=== PATIENT | male | born 1960 | race Caucasian/White ===

== ENCOUNTER 2016-09-19 11:14 | Emergency (ER) | payer OTHER, BC ==
[~2016-09-19] VITALS: Ht 177.8 cm; Wt 76.4 kg
[~2016-09-19 11:14] MED LIST: LEVO25TA2 PO; LISI5TAB14 PO; MULT-954 PO; NAPR500T3 PO
--- OUTSIDE RECORDS SUMMARY | 2016-09-19 11:18 | XMS REPORT | Continuity of Care Document ---
Author Author [facility] Address Unknown Phone Unavailable Allergies Active Description Code Type Severity Reaction Onset Reported/Identified Relationship to Patient Clinical Status Yes Penicillins [id number] Drug Allergy Mild Hives 11/08/2013 Medications Problems Date Dx Coded Attending Type Code Diagnosis Diagnosed By 11/08/2013 IVANNA MANJARREZ, HORACE Linares Ot 719.43 JOINT PAIN-FOREARM 11/08/2013 IVANNA MANJARREZ, HORACE Linares Ot 726.90 ENTHESOPATHY, SITE NOS 01/31/2015 Ot 241.0 02/12/2015 JULIO CESAR MCINTOSH Ot 715.31 LOC OSTEOARTH NOS-SHLDER 02/12/2015 JULIO CESAR MCINTOSH Ot V57.1 PHYSICAL THERAPY NEC 02/28/2015 JULIO CESAR MCINTOSH Ot 715.31 02/28/2015 JULIO CESAR MCINTOSH Ot V57.1 04/10/2016 Ot 241.0 NONTOX UNINODULAR GOITER 04/15/2016 CARLIE MANJARREZ, JOHNNIE Rowe Ot R13.10 DYSPHAGIA, UNSPECIFIED 04/23/2016 CARLIE MANJARREZ, JOHNNIE Rowe Ot R13.10 DYSPHAGIA, UNSPECIFIED 04/24/2016 Ot 241.0 NONTOX UNINODULAR GOITER 04/24/2016 CARLIE MANJARREZ, JOHNNIE Rowe Ot R13.10 DYSPHAGIA, UNSPECIFIED 05/14/2016 JOHNNIE SEXTON MD Ot R13.10 DYSPHAGIA, UNSPECIFIED Procedures Results Encounters ACCT No. Visit Date/Time Discharge Status Pt. Type Provider Facility Loc./Unit Complaint [id number] 05/01/2016 16:15:00 2015 10:33:00 DIS Outpatient CARLIE MANJARREZ, JOHNNIE [facility] ST NEW-DYSPHAGIA [id number] 02/12/2015 10:00:00 2014 11:30:00 DIS Outpatient JULIO CESAR MCINTOSH [facility] PT NEW/L SHOULDER OSTEOARTHRITIS [id number] 11/08/2013 15:57:00 2013 16:43:00 DIS Emergency IVANNA MANJARREZ, HORACE L [facility] ED [id number] 04/11/2016 09:25:00 ACT Outpatient CARLIE MANJARREZ, [facility] RAD DYSPHAGIA [id number] 01/31/2015 09:51:00 Document Registration
--- OUTSIDE RECORDS SUMMARY | 2016-09-19 11:21 | XMS REPORT | Continuity of Care Document ---
Author Author [facility] Address Unknown Phone Unavailable Allergies Active Description Code Type Severity Reaction Onset Reported/Identified Relationship to Patient Clinical Status Yes Penicillins [id number] Drug Allergy Mild Hives 11/08/2013 Medications Problems [...] Status Pt. Type Provider Facility Loc./Unit Complaint [id number] 05/01/2016 16:15:00 2015 10:33:00 DIS Outpatient CARLIE MANJARREZ, JOHNNIE [facility] ST NEW-DYSPHAGIA [id number] 02/12/2015 10:00:00 2014 11:30:00 DIS Outpatient JULIO CESAR MCINTOSH [facility] PT NEW/L SHOULDER OSTEOARTHRITIS [id number] 11/08/2013 15:57:00 2013 16:43:00 DIS Emergency IVANNA MANJARREZ, HORACE L [facility] ED [id number] 04/11/2016 09:25:00 ACT Outpatient CARLIE MANJARREZ, [facility] RAD DYSPHAGIA [id number] 01/31/2015 09:51:00 Document Registration
[2016-09-19] MEDS ORDERED: LSNP10T PO (11:52)
[2016-09-19] MEDS ORDERED: LEVO50TA6 PO (11:52)
[2016-09-19 13:08] VITALS: BP 125/90
--- NOTE | 2016-09-22 16:05 | NUR ---
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 RECORD LOOKED UP TO SEE IF PHYSICIAN HAD INDICATED PT TO F/U IN ED (EUOP VS ED). WHEN THIS NURSE CALLED BACK TO ED SATURATION EQUIPMENT OPERATOR, PT HAD DEPARTED SAYING HE WOULD BE FOLLOW-UP TOMORROW WITH [facility]. [employer] [facility] CONTACTED TO ADVISE THEM OF PT STATEMENT. PT HAD PREVIOUSLY BEEN AT [facility] BUT DIDN'T HAVE APPT AND WAS ADVISED TO GO THROUGH HIS WORK COMP REP TO ARRANGE F/U OR CHECK WITH ED.
== END 2016-09-19 12:55 | disposition home or self-care (01) ==
LOC: ED 11:17
DX: S61.211A Laceration without foreign body of left index finger without damage to nail, initial encounter (principal); W31.89XA Contact with other specified machinery, initial encounter; Y93.89 Activity, other specified; Y92.63 Factory as the place of occurrence of the external cause; Y99.0 Civilian activity done for income or pay
CPT/HCPCS: 99281; 99282